=== PATIENT | male | born 1990 | race Caucasian/White ===

== ENCOUNTER 2017-03-01 21:05 | Emergency (ER) | payer MEDICAID ==
[~2017-03-01] VITALS: Ht 170.2 cm; Wt 57.2 kg
[2017-03-01] MEDS ORDERED: diphenhydrAMINE HCL 50 MG/ML VIAL ONE (21:26)
[2017-03-01] MEDS ORDERED: IV NS 0.9% 1,000 ML ONE (21:26)
[2017-03-01] MEDS ORDERED: HALOPERIDOL LACTATE INJ 5 MG/ML VIAL ONE (21:26)
[2017-03-01] MEDS ORDERED: IV SET PRIMARY PUMP SET 1 EA INFUS.SET MC ONE (21:26)
[2017-03-01] MEDS ORDERED: LORAZEPAM INJ 2 MG/ML VIAL ONE (21:27)
[2017-03-01 21:32] LABS: BASOPHILS # (AUTO) 0.1 /CMM (0.0-0.2); BASOPHILS % (AUTO) 1.1 % (0.0-2.0); EOSINOPHILS # (AUTO) 0.1 /CMM (0.0-0.7); EOSINOPHILS % (AUTO) 1.7 % (0.0-6.0); HEMATOCRIT 38 % (39-51); HEMOGLOBIN 13.1 g/dL (13.5-17.5); LYMPHOCYTES # (AUTO) 2.4 /CMM (0.8-4.8); LYMPHOCYTES % (AUTO) 27.8 % (20.0-44.0); MEAN CORPUSCULAR HEMOGLOBIN 31 PG (26.0-33.0); MEAN CORPUSCULAR HGB CONC 35 g/dl (31.0-36.0); MEAN CORPUSCULAR VOLUME 89 fL (80-96); MONOCYTES # (AUTO) 0.7 /CMM (0.1-1.30); MONOCYTES % (AUTO) 7.7 % (2.0-12.0); NEUTROPHILS # (AUTO) 5.4 /CMM (1.8-8.9); NEUTROPHILS % (AUTO) 61.7 % (43.0-81.0); PLATELET COUNT (AUTO) 354 /CMM (150-450); RDW COEFFICIENT OF VARIATION 13.6 (11.5-15.0); RED BLOOD CELL COUNT(AUTO) 4.26 MIL/uL (4.5-6.0); WHITE BLOOD COUNT (AUTO) 8.7 K/uL (4.3-11.0)
[2017-03-01] MEDS: LORAZEPAM INJ 2 MG/ML VIAL IVP ONE (21:35)
[2017-03-01] MEDS: diphenhydrAMINE HCL 50 MG/ML VIAL IV ONE (21:37)
[2017-03-01] MEDS: IV NS 0.9% 1,000 ML BAG IV ONE (21:37)
[2017-03-01 21:39] LABS: CALCIUM, SERUM 8.7 mg/dL (8.5-10.1); CARBON DIOXIDE 24 mmol/L (21-32); CHLORIDE 106 mmol/L (98-107); CREATININE 1.2 mg/dL (0.6-1.3); GLUCOSE 74 mg/dL (74-106); POTASSIUM 3.7 mmol/L (3.5-5.1); SODIUM SERUM 142 mmol/L (136-145); UREA NITROGEN, BLOOD 16 mg/dL (7-18)
[2017-03-01 21:49] LABS: ALANINE AMINOTRANSFERASE 39 U/L (12-78); ALBUMIN 3.7 g/dL (3.4-5.0); ALKALINE PHOSPHATASE 71 U/L (46-116); BILIRUBIN,DIRECT 0.1 mg/dL (0.0-0.2); BILIRUBIN,TOTAL 0.4 mg/dL (0.2-1.0)
[2017-03-01 21:50] LABS: ACETAMINOPHEN < 2 ug/ml (10-30); ALCOHOL, BLOOD < 3 mg/dL (0-0); SALICYLATE < 2.8 mg/dL (2.8-20.0); TOTAL PROTEIN, SERUM 6.8 g/dL (6.4-8.2)
[2017-03-01 21:52] LABS: ASPARTATE AMINOTRANSFERASE 37 U/L (15-37)
[2017-03-01] MEDS: HALOPERIDOL LACTATE INJ 5 MG/ML VIAL IVP ONE (22:00)
[2017-03-01 22:28] LABS: APPEARANCE,URINE CLEAR (CLEAR); BILIRUBIN,URINE NEGATIVE (NEGATIVE); BLOOD, URINE NEGATIVE Ery/uL (NEGATIVE); COLOR,URINE YELLOW (YELLOW); KETONES,URINE NEGATIVE (NEGATIVE); LEUKOCYTE ESTERASE ,URINE NEGATIVE (NEGATIVE); NITRITE, URINE NEGATIVE (NEGATIVE); PROTEIN,URINE TRACE mg/dl (NEGATIVE); UGLUCOSE NEGATIVE (NEGATIVE); UROBILINOGEN,URINE 0.2 EU/dL (0.2)
[2017-03-01 22:51] LABS: BACTERIA,URINE None seen /HPF (None Seen); MUCUS,URINE Few /LPF (None Seen); RBC,URINE NONE SEEN /HPF (0-2); SQUAMOUS EPITHELIAL CELL,UR Few /HPF (None Seen); URINE AMORPHOUS URATE Few /HPF (None Seen); WBC,URINE NONE SEEN /HPF (0-3)
[2017-03-02 05:17] VITALS: BP 119/75
== END 2017-03-02 05:18 | disposition home or self-care (01) ==
LOC: EDBD 21:08 → ER 21:08
DX: F15.10 Other stimulant abuse, uncomplicated (principal); F12.10 Cannabis abuse, uncomplicated
CPT/HCPCS: 36415; 80048-TC; 80076-TC; 80305; 81000-TC; 85025-TC; A4606; G0480; J1200; J1630; J2060; J7030; Z7610

== ENCOUNTER 2020-01-07 15:24 | Emergency (ER) | payer MEDICAID ==
[~2020-01-07] VITALS: Ht 170.2 cm; Wt 68.0 kg
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
--- NOTE | 2020-01-07 17:12 | NUR ---
PT NOTED @ 89% ON RA AND DROWSY. PLACED ON O2 VIA NC @ 2LPM. MADE AWARE. ORDERS RECEIVED
[2020-01-07] MEDS ORDERED: NALOXONE PREFILLED SYRINGE 2 MG/2 ML SYRINGE ONE (17:15)
--- NOTE | 2020-01-07 17:19 | NUR ---
PT AWAKEN UP WHEN PRIOR TO GIVING NARCAN. PT IS FULLY AWAKE. O2 SAT 97% ON RA. MD MADE AWARE. CLEARED FOR DISCHARGE.
--- NOTE | 2020-01-07 17:21 | NUR ---
Patient discharged to home in stable condition. Written and verbal after care instructions given. Patient verbalizes understanding of instruction.IV removed. Catheter intact and site benign. Pressure and 4x4 applied to site. No bleeding noted. Pt ambulatory with a steady gait
[2020-01-07 17:27] VITALS: BP 121/71
[2020-01-07] MEDS ORDERED: NALOXONE HCL 0.4 MG/ML AMPUL IV ONE (17:30)
== END 2020-01-07 17:27 | disposition home or self-care (01) ==
LOC: ER 15:30
DX: T40.0X1A Poisoning by opium, accidental (unintentional), initial encounter (principal); R41.82 Altered mental status, unspecified; Z59.0 Homelessness; Y92.89 Other specified places as the place of occurrence of the external cause
CPT/HCPCS: 99283; J2310

== ENCOUNTER 2022-08-29 03:54 | Inpatient (IN) | payer MEDICAID ==
[~2022-08-29] VITALS: Ht 172.7 cm; Wt 70.8 kg
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
--- NOTE | 2022-08-29 05:01 | NUR ---
COVID SWAB COLLECTED
--- NOTE | 2022-08-29 05:01 | NUR ---
URINE SAMPLE COLLECTED
--- NOTE | 2022-08-29 05:16 | NUR ---
PT REFUSED BLOOD DRAW PER OVERHEAD CLEANER
[2022-08-29] MEDS ORDERED: diphenhydrAMINE HCL 50 MG/ML VIAL ONE (05:48)
[2022-08-29] MEDS ORDERED: HALOPERIDOL LACTATE INJ 5 MG/ML VIAL ONE (05:48)
[2022-08-29] MEDS ORDERED: LORAZEPAM INJ 2 MG/ML VIAL ONE (05:49)
[2022-08-29 05:59] LABS: BILIRUBIN,URINE 1+ (NEGATIVE); COLOR,URINE DARK YELLOW (YELLOW); LEUKOCYTE ESTERASE ,URINE NEGATIVE (NEGATIVE); NITRITE, URINE NEGATIVE (NEGATIVE); PROTEIN,URINE 1+ mg/dl (NEGATIVE); UGLUCOSE NEGATIVE (NEGATIVE); UROBILINOGEN,URINE 0.2 EU/dL (0.2)
[2022-08-29] MEDS ORDERED: LORAZEPAM INJ 2 MG/ML VIAL IM ONE (06:00)
[2022-08-29] MEDS ORDERED: diphenhydrAMINE HCL 50 MG/ML VIAL IM ONE (06:00)
[2022-08-29] MEDS ORDERED: HALOPERIDOL LACTATE INJ 5 MG/ML VIAL IM ONE (06:00)
[2022-08-29 06:14] LABS: BACTERIA,URINE Rare /HPF (None Seen); SQUAMOUS EPITHELIAL CELL,UR Few /HPF (None Seen); WBC,URINE 0-2 /HPF (0-3)
[2022-08-29 07:44] LABS: BASOPHILS % (AUTO) 0.2 % (0.0-2.0); EOSINOPHILS % (AUTO) 0.3 % (0.0-6.0); HEMATOCRIT 42 % (39-51); HEMOGLOBIN 14.1 g/dL (13.5-17.5); LYMPHOCYTES # (AUTO) 1.1 K/uL (0.8-4.8); LYMPHOCYTES % (AUTO) 9.4 % (20.0-44.0); MEAN CORPUSCULAR HGB CONC 34 g/dl (31.0-36.0); MEAN CORPUSCULAR VOLUME 88 fL (80-96); MONOCYTES % (AUTO) 8.4 % (2.0-12.0); NEUTROPHILS # (AUTO) 9.8 K/uL (1.8-8.9); NEUTROPHILS % (AUTO) 81.7 % (43.0-81.0); PLATELET COUNT (AUTO) 229 K/uL (150-450); WHITE BLOOD COUNT (AUTO) 11.9 K/uL (4.3-11.0)
[2022-08-29 07:51] LABS: CALCIUM, SERUM 8.1 mg/dL (8.5-10.1); CARBON DIOXIDE 23 mmol/L (21-32); CHLORIDE 101 mmol/L (98-107); CREATININE 0.8 mg/dL (0.6-1.3); POTASSIUM 3.4 mmol/L (3.5-5.1); SODIUM SERUM 139 mmol/L (136-145); UREA NITROGEN, BLOOD 19 mg/dL (7-18)
[2022-08-29 07:55] LABS: GLUCOSE 38 mg/dL (74-106)
[2022-08-29] MEDS ORDERED: DEXTROSE 50%-WATER 50 ML DISP.SYRIN ONE ×2 (07:56→14:03)
[2022-08-29 07:57] LABS: ALANINE AMINOTRANSFERASE 51 U/L (12-78); ALBUMIN 3.7 g/dL (3.4-5.0); ALCOHOL, BLOOD < 3 mg/dL (0-0); ALKALINE PHOSPHATASE 55 U/L (46-116); ASPARTATE AMINOTRANSFERASE 75 U/L (15-37); BILIRUBIN,DIRECT 0.3 mg/dL (0.0-0.2); TOTAL PROTEIN, SERUM 6.8 g/dL (6.4-8.2)
[2022-08-29 08:00] LABS: ACETAMINOPHEN < 10 ug/ml (10-30)
[2022-08-29] MEDS ORDERED: DEXTROSE 10% IN WATER 250 ML BAG IV ONE (08:30)
--- NOTE | 2022-08-29 15:01 | NUR ---
[facility] CALLED SALESPERSON SHEET MUSIC PAGED.
[2022-08-29] MEDS ORDERED: ONDANSETRON HCL/PF 4 MG/2 ML VIAL IVP PRN (18:00)
[2022-08-29] MEDS ORDERED: ZOLPIDEM TARTRATE 5 MG TABLET PO PRN (18:00)
[2022-08-29] MEDS ORDERED: MAG HYDROX/AL HYDROX/SIMETH 30 ML UDC PO PRN (18:00)
[2022-08-29] MEDS ORDERED: Z GUARD REMEDY 4 OZ OINT TP PRN (18:00)
[2022-08-29] MEDS ORDERED: MAGNESIUM HYDROXIDE 30 ML UDC PO PRN (18:00)
[2022-08-29] MEDS: Sodium Chloride 77 MEQ in IV 10% DEXTROSE 1,000 ML IV SCH (21:09)
[2022-08-29] MEDS: BLOOD SUGAR DIAGNOSTIC 1 EACH STRIP IN SCH (21:37)
--- NOTE | 2022-08-30 | NUR ---
PT SLEEPING IN BED. VSS. SAFETY MEASURES IN PLACE.
--- NOTE | 2022-08-30 01:31 | NUR ---
BS ACCTITIECK 131 Addendum: 08/30/22 at 0256 by RAFIA BS ACCUCHECK 130
[2022-08-30] MEDS: BLOOD SUGAR DIAGNOSTIC 1 EACH STRIP IN SCH ×6 (01:32→20:39)
--- NOTE | 2022-08-30 04:01 | NUR ---
ADLS DONE. PT AMBULATED TO RESTROOM WITH STEADY GAIT. VSS
[2022-08-30] MEDS: Sodium Chloride 77 MEQ in IV 10% DEXTROSE 1,000 ML IV SCH ×3 (04:14→20:00)
--- NOTE | 2022-08-30 06:00 | NUR ---
BOX COVERER HAND AT PT'S BEDSIDE
[2022-08-30 06:28] LABS: BASOPHILS % (AUTO) 0.1 % (0.0-2.0); EOSINOPHILS % (AUTO) 1.1 % (0.0-6.0); HEMATOCRIT 44 % (39-51); HEMOGLOBIN 14.8 g/dL (13.5-17.5); MEAN CORPUSCULAR HGB CONC 34 g/dl (31.0-36.0); MEAN CORPUSCULAR VOLUME 88 fL (80-96); MONOCYTES # (AUTO) 0.8 K/uL (0.1-1.30); MONOCYTES % (AUTO) 8.4 % (2.0-12.0); NEUTROPHILS # (AUTO) 7.7 K/uL (1.8-8.9); NEUTROPHILS % (AUTO) 80.4 % (43.0-81.0); PLATELET COUNT (AUTO) 217 K/uL (150-450); RED BLOOD CELL COUNT(AUTO) 4.96 MIL/uL (4.5-6.0); WHITE BLOOD COUNT (AUTO) 9.6 K/uL (4.3-11.0)
[2022-08-30 07:29] LABS: ALBUMIN 3.2 g/dL (3.4-5.0); BILIRUBIN,DIRECT 0.2 mg/dL (0.0-0.2); BILIRUBIN,TOTAL 0.8 mg/dL (0.2-1.0); CALCIUM, SERUM 7.8 mg/dL (8.5-10.1); CREATININE 0.7 mg/dL (0.6-1.3); MAGNESIUM 1.9 mg/dL (1.8-2.4); PHOSPHORUS 2.6 mg/dL (2.5-4.9); POTASSIUM 3.3 mmol/L (3.5-5.1); TOTAL PROTEIN, SERUM 6.2 g/dL (6.4-8.2)
[2022-08-30] MEDS ORDERED: PANTOPRAZOLE 40 MG TABLET.DR PO ONE (07:52)
[2022-08-30] MEDS: PANTOPRAZOLE 40 MG TABLET.DR PO SCH (07:52)
--- NOTE | 2022-08-30 09:04 | NUR ---
BS 115MG/DL; PT NOT IN ACUTE DISTRESS.
[2022-08-30] MEDS ORDERED: POTASSIUM CHLORIDE 20 MEQ TAB.PRT.SR PO SCH (11:00)
--- NOTE | 2022-08-30 11:23 | NUR ---
DR SANTIAGO AT BEDSIDE W/ PT
[2022-08-30] MEDS ORDERED: POTASSIUM CHLORIDE 20 MEQ TAB.PRT.SR PO ONE (12:26)
--- NOTE | 2022-08-30 12:35 | NUR ---
K-DUR PO GIVEN INDICATED, BEULAH WELL
[2022-08-30] MEDS ORDERED: CLINDAMYCIN PHOSPHATE IV 600 MG/4 ML VIAL IV SCH (13:00)
--- NOTE | 2022-08-30 13:00 | NUR ---
LUNCH TRAY PROVIDED TO PTBEULAH
--- NOTE | 2022-08-30 13:39 | NUR ---
BS 111MG/DL
--- NOTE | 2022-08-30 14:38 | NUR ---
NO 5150 HOLD PAPERS CAN BE FOUND FOR THIS PATIENT, BULL MIRANDA CALLED FOR EVAL TO SEE IF PATIENT NEEDS PSYCH EVAL.
--- NOTE | 2022-08-30 15:27 | NUR ---
SPOKE TO GINO BOBBIN COLLECTOR AND SHE WILL EVALUATE PT
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
[2022-08-30] MEDS: CLINDAMYCIN 600 MG in IV D5W 50 ML IV SCH ×2 (19:59→23:55)
--- NOTE | 2022-08-30 20:38 | NUR ---
BS 106
--- NOTE | 2022-08-30 20:57 | NUR ---
REPORT GIVEN TO TRU Bridges FOR LIBERTAD
--- NOTE | 2022-08-30 21:15 | NUR ---
TELE REAL ESTATE INVESTMENT ANALYST INITIAL NOTED Admit pt from ER via gurney accompanied by sanitation technician and nurse. Pt is alert oriented X4, ambulatory , no signs of any distress or any pain noted at this time. No signs of suicidal ideation noted. He's cooperative and calmed . able to give information. Pt stated "he wants to go to [facility] if he will discharge. Noticed multiple blister , abrasion and scratches on his skin. Oriented him to his room and how to use the call light system . Snacks also served as ordered. Tele monitor applied to his chest wall and explained to him what the purpose of it and pt understood well. kept him warm and comfortable at all times. will continue monitoring.
--- NOTE | 2022-08-30 21:26 | NUR ---
PT TRANSFERRED TO 321-1 VIA ACLS PROTOCOL. VSS. ALL BELONGINGS WITH PT.
[2022-08-30 21:30] VITALS: BP 128/84
[2022-08-30] MEDS ORDERED: [UNRECOGNIZED DRUG - OTHER] ONE (23:19)
[2022-08-30 23:40] VITALS: BP 128/84
[2022-08-31 00:22] VITALS: BP 111/69
[2022-08-31] MEDS: Sodium Chloride 77 MEQ in IV 10% DEXTROSE 1,000 ML IV SCH ×4 (01:09→19:46)
[2022-08-31] MEDS: BLOOD SUGAR DIAGNOSTIC 1 EACH STRIP IN SCH ×6 (01:23→21:34)
--- NOTE | 2022-08-31 01:23 | NUR ---
info analyst notes Pt asleep but arousable, Blood sugar checked done 145 , no coverages as ordered. no signs of hypo or hyper glycemia noted. will continue monitoring.
[2022-08-31 04:37] VITALS: BP 119/70
[2022-08-31] MEDS: CLINDAMYCIN 600 MG in IV D5W 50 ML IV SCH (05:23)
[2022-08-31 06:04] LABS: BASOPHILS % (AUTO) 0.2 % (0.0-2.0); EOSINOPHILS % (AUTO) 2.1 % (0.0-6.0); HEMATOCRIT 43 % (39-51); HEMOGLOBIN 14.5 g/dL (13.5-17.5); LYMPHOCYTES # (AUTO) 1.1 K/uL (0.8-4.8); LYMPHOCYTES % (AUTO) 12.9 % (20.0-44.0); MEAN CORPUSCULAR HGB CONC 34 g/dl (31.0-36.0); MEAN CORPUSCULAR VOLUME 89 fL (80-96); MONOCYTES # (AUTO) 0.8 K/uL (0.1-1.30); MONOCYTES % (AUTO) 9.1 % (2.0-12.0); NEUTROPHILS # (AUTO) 6.3 K/uL (1.8-8.9); NEUTROPHILS % (AUTO) 75.7 % (43.0-81.0); PLATELET COUNT (AUTO) 224 K/uL (150-450); RED BLOOD CELL COUNT(AUTO) 4.83 MIL/uL (4.5-6.0); WHITE BLOOD COUNT (AUTO) 8.3 K/uL (4.3-11.0)
--- NOTE | 2022-08-31 06:20 | NUR ---
alumni coordinator notes Blood sugar 131 no coverages as ordered.
[2022-08-31 06:49] LABS: CREATININE 0.7 mg/dL (0.6-1.3); MAGNESIUM 1.8 mg/dL (1.8-2.4); PHOSPHORUS 2.7 mg/dL (2.5-4.9); POTASSIUM 3.7 mmol/L (3.5-5.1)
--- NOTE | 2022-08-31 06:49 | NUR ---
TELE ACCOUNTS EXECUTIVE NOTES Patient remain sleeping at this time with IVF still infusing , no redness noted. no signs of any acute distress or any discomfort at this time. Tele SR heart rate 88 per monitor. Kept him warm and comfortable at all times. will endorse to am nurse for continuity of care.
--- NOTE | 2022-08-31 07:15 | NUR ---
ms rn received on bed, awake,alert,oriented x4,not in any for of distress, respirations even and unlabored,no sob noted, noted to have some pustular rashes on his edwina parts, denies pain at this time,blood sugar monitored ,all needs attended.
[2022-08-31] MEDS: PANTOPRAZOLE 40 MG TABLET.DR PO SCH (08:10)
--- NOTE | 2022-08-31 09:00 | NUR ---
ms loera breakfast served,due meds given,tolerated well.
--- NOTE | 2022-08-31 09:09 | NUR ---
WOUND CARE CONSULT: PT SEEN FOR RT ARM LESIONS (VESICLES/PUSTULES) WITH ERYTHEMA WELL REDNESS AND SLIGHT INDURATION AT LOWER ABDOMEN, PRESENT ON ADMISSION. DEFER TO PMD FOR SKIN LESIONS AND ABDOMINAL REDNESS. PT IS INDEPENDENT WITH BED MOBILITY AND IS CONTINENT. WILL SEE PRN.
--- NOTE | 2022-08-31 11:25 | NUR ---
DISCHARGE PLANNING: LISSETT conducted biopsychosocial assessment yesterday. SW met with pt. at bedside to follow up on discharge planning. The pt. is alert & oriented x 4 and makes good eye contact. Pt.'s mood is more stable from yesterday. Pt. denies current SI/HI and denies hallucinations. The pt. has good insight and stated he has no support system. Per pt. he is ambulatory and independent with all his ADL's. Per pt. he does not receive financial assistance, Per pt. he would like to be referred to [facility] for drug & alcohol rehab. pt. states he uses Meth, [place] and alcohol daily. LISSETT faxed referral to [facility] fax: [phone]. LISSETT provided pt. with homeless resources: long term, food, showers and pt. accepted them. Pt. signed homeless waiver and it was placed in the pt.'s chart. LISSETT discussed DC plan with pt.'s nurse and requested pt. be given bus TAP card upon DC. Resources provided include: Year-round shelters: [facility] [address] [place] [address] ; [facility] [place] [address] [place] [address]; [place] [facility] P[address]av[address] [place] e. [facility] [address] Hygiene: [place] [facility]: [address] [place] ; [place] [facility] [address] [facility] ; [facility] 7666 [facility] . Food Resources: [place] [facility] at [facility]- [address] [place]; Meet Each Need with Dignity ([facility]) [address] [place]; [facility] Food Pantry 7112 [facility]; [facility] [address] [place]. Mental Health resources provided: [facility] [address] [place] [address] ; [facility] [address]686 [facility] [address], [place] [address] ; [facility] [address] [place] [address] ; [facility] [address] [place], [place] [address] Healthcare Clinics: [facility] 6551 [facility], [address] [place]. [place] ; [facility] [address] [facility] [address] [place] [address]; [facility] [address]171 [place] [address] [phone] Counseling--Outpatient [facility] [address] [facility], [place] [address] (Specializes in in-depth psychotherapy for emotional distress: anxiety, depression, interpersonal conflicts, life transitions, childhood abuse) [facility] [address] [place] [address] (Assist with solving problem marital difficulties, separation & divorce, aging parents, & grief, chronic & terminal illness) [facility] [address] [place] [address] (Deal with loss & grief, anxiety, marital difficulties) Homebound/Mental Health Services [address] [facility], [address] [place] [address] (Provide in-home mental services to people who are incapable of leaving their homes) Organization for Needs of the Elderly Senior Service/Resource Center [address] [place], [place] [phone] [facility] 6514 [facility] [address]. [place], [place] [phone] PSYCHIATRIC OUTPATIENT SERVICES [facility] Partial Hospitalization and Intensive Outpatient Program (Managed Care and [place] Only)25376 [facility] [phone] [facility] Partial Hospitalization and Outpatient [address] [place], [place] [phone] GURU SALVADOR [facility] [id number] [address] [facility]. [address] [place], [place] [phone] [facility] Jeremiah Partial Hospitalization and Outpatient [id number] Loni Fraire, [phone] Substance Abuse resources provided included: [facility] Substance Abuse Self-Helpline ([facility]) ; CRI -HELP [address] [facility]. [place] [address] ; [facility] 44162 [facility] [address] ; [facility] Rehabilitation Program [address]811 [facility] [id number] ; [facility] 400 [facility] [phone] ; [facility] 4940 [facility] [phone] ; [facility] 909 [facility] [phone] ; [facility] Substance Abuse Helpline([facility] ; [facility] ; [facility] [place]; [facility] [place]; [facility] [place]; I-ADARP Inter Agency Drug Abuse Recovery [place]; [facility]; [facility] [place]; [facility] [place]; [facility] [place]; Alcoholics Anonymous -SFV; Pr-Cgxx-Jhrtakq ; Marijuana Anonymous -SFV; Narcotics Anonymous www.na.org;
--- NOTE | 2022-08-31 14:00 | NUR ---
MS RN WAS SEEN BY INFECTIOUS MD. W/ ORDERS MADE AND CARRIED OUT.
[2022-08-31] MEDS: VALACYCLOVIR HCL 500 MG TABLET PO SCH ×2 (15:20→21:28)
--- NOTE | 2022-08-31 16:49 | NUR ---
[facility]: LISSETT received call from Lacie tel: [phone] and LISSETT addressed her questions. LISSETT also facilitated phone call with pt. and Lacie interviewed the pt. for possible residential treatment. LISSETT will be available as needed.
[2022-08-31] MEDS: CLINDAMYCIN HCL 150 MG CAPSULE PO SCH (17:04)
--- NOTE | 2022-08-31 17:50 | NUR ---
MS RN ON BED,NO DISTRESS NOTED,ALL NEED ATTENDED.
[2022-08-31 19:43] VITALS: BP 103/57
[2022-08-31 20:00] VITALS: BP 103/57
--- NOTE | 2022-08-31 20:10 | NUR ---
TELE SUMO WRESTLER INITIAL NOTES, Received pt in bed awake and watching tv at this time, denies any pain or any discomfort. IVF still infusing on his left Forearm, no redness noted. Pt asking for some snacks later. Pt also on Tele SR heart rate 81 .Kept him warm and comfortable at all times. Will continue monitoring place call light at reach.
--- NOTE | 2022-08-31 21:34 | NUR ---
INTEGRITY ANALYST NOTES BLOOD SUGAR CHECKED DONE 145. NO COVERAGE ORDERED. NO SIGNS OF HYPO/HYPER GLYCEMIA NOTED. ROUTINE MEDS GIVEN . IVF STILL INFUSING. WILL CONTINUE MONITORING.
--- NOTE | 2022-08-31 21:45 | NUR ---
ELECTRIC TOOL REPAIRER NOTES SPOKE TO PHARMACY SUMMER CAMP COUNSELOR TO VERIFY IF I CAN GIVE THE MEDS AT 2100, BECAUSE ORDERED IS Q 12HRS EVEN DAY SHIFT NURSE JUST GAVE THE FIRST DOSE AT 15:20 . SHE (JENNIFER) TOLD ME TO HOLD IT FOR NOW THEN JUST GIVE IT BY 12 MN INSTEAD SO ITS START THE NEXT DOSE BY 9AM THAT IS Q 12 HRS ORDERED. CHARGE NURSE MAKAYLA IS ALSO AWARE.
[2022-09-01] VITALS: BP 133/76
[2022-09-01] MEDS: VALACYCLOVIR HCL 500 MG TABLET PO SCH ×3 (00:01→21:34)
[2022-09-01] MEDS: CLINDAMYCIN HCL 150 MG CAPSULE PO SCH ×4 (00:01→17:54)
--- NOTE | 2022-09-01 00:11 | NUR ---
menu planner notes pt sleeping but arouse easily, routines meds given as ordered. Pt denies any pain or any discomfort. IVF still infusing, some juices and crackers given per pt requested. will continue monitoring.
[2022-09-01] MEDS: BLOOD SUGAR DIAGNOSTIC 1 EACH STRIP IN SCH ×6 (01:19→21:34)
--- NOTE | 2022-09-01 01:19 | NUR ---
COMMERCIAL RELIEF DRIVER NOTES BLOOD SUGAR CHECKED 145, NO COVERAGE ORDERED. NO SIGNS OF HYPO/HYPERGLYCEMIA NOTED.
[2022-09-01] MEDS: Sodium Chloride 77 MEQ in IV 10% DEXTROSE 1,000 ML IV SCH ×3 (03:43→17:54)
[2022-09-01 04:00] VITALS: BP 112/64
--- NOTE | 2022-09-01 05:29 | NUR ---
PASSENGER CAR CLEANING SUPERVISOR NOTES BLOOD SUGAR CHECKED 124 NO COVERAGE ORDERED. WILL CONTINUE MONITORING.
[2022-09-01 07:00] VITALS: BP 117/73
--- NOTE | 2022-09-01 07:25 | NUR ---
tele llvn closing notes Pt back to sleep after blood sugar checked . denies any pain or any discomfort. IVF still infuisng on his left forearm. no signs of redness noted. all due meds given and all needs met. Patient only request for today have a shower .Endorse to am nurse to let MD for the pt request. Tele SR per monitor. place call light at reach.
[2022-09-01 07:28] LABS: BASOPHILS % (AUTO) 0.2 % (0.0-2.0); EOSINOPHILS % (AUTO) 3.4 % (0.0-6.0); HEMATOCRIT 43 % (39-51); HEMOGLOBIN 14.6 g/dL (13.5-17.5); LYMPHOCYTES # (AUTO) 1.5 K/uL (0.8-4.8); LYMPHOCYTES % (AUTO) 19.8 % (20.0-44.0); MEAN CORPUSCULAR HGB CONC 34 g/dl (31.0-36.0); MEAN CORPUSCULAR VOLUME 89 fL (80-96); MONOCYTES # (AUTO) 0.8 K/uL (0.1-1.30); MONOCYTES % (AUTO) 10.9 % (2.0-12.0); NEUTROPHILS # (AUTO) 4.9 K/uL (1.8-8.9); NEUTROPHILS % (AUTO) 65.7 % (43.0-81.0); PLATELET COUNT (AUTO) 250 K/uL (150-450); RED BLOOD CELL COUNT(AUTO) 4.87 MIL/uL (4.5-6.0); WHITE BLOOD COUNT (AUTO) 7.5 K/uL (4.3-11.0)
[2022-09-01 07:33] LABS: CALCIUM, SERUM 8.2 mg/dL (8.5-10.1); CREATININE 0.7 mg/dL (0.6-1.3); MAGNESIUM 1.8 mg/dL (1.8-2.4); PHOSPHORUS 3.8 mg/dL (2.5-4.9); POTASSIUM 3.7 mmol/L (3.5-5.1)
--- NOTE | 2022-09-01 07:51 | NUR ---
SHAMPOO TECHNICIAN OPENING NOTE Patient in bed, asleep. A/O x 4. On room air, breathing evenly and unlabored. No SOB or s/s of distress noted. IV access on LFA #20 infusing D10 at 150ml/hr. On tele monitoring showing SR, HR on the 80's. Safety precautions in place: bed in low, locked position; siderails up x 2; call light within reach. Will continue to monitor.
[2022-09-01] MEDS: PANTOPRAZOLE 40 MG TABLET.DR PO SCH (08:09)
[2022-09-01] MEDS: VENLAFAXINE XR 37.5 MG CAP.SR.24H PO SCH (11:26)
[2022-09-01 12:00] VITALS: BP 125/94
[2022-09-01 16:00] VITALS: BP 112/59
--- NOTE | 2022-09-01 19:46 | NUR ---
ASSISTANT AT SURGERY CLOSING NOTE Patient in bed, resting. A/O x 4, able to make needs known. On room air, breathing evenly and unlabored. No SOB or s/s of distress noted. IV access on LFA #20 infusing NaCl in D10 at 150ml/hr. On tele monitoring showing SR, HR on the 80's. All needs attended to. Due meds given. Safety precautions in place: bed in low, locked position; siderails up x 2; call light within reach. Will endorse to shift mgr nurse for LIBERTAD.
[2022-09-01 20:00] VITALS: BP 106/70
--- NOTE | 2022-09-01 20:10 | NUR ---
RAW STOCK MACHINE FEEDER OPENING NOTE PATIENT AWAKE IN BED, ALERT/ORIENTED X 4, PT ABLE TO MAKE NEEDS KNOWN. PT STABLE ON RA, NO S/S OF DISTRESS OR SOB NOTED, BREATHING EVEN AND UNLABORED. PT ON EXTERNAL DIRECTOR LAW ENFORCEMENT READING SINUS RHYTHM, HR: 78. IV ACCESS ON LFA #20G INTACT AND INFUSING NACL IN D10 @ 150 ML/HR. PATIENT GIVEN JUICE AND SNACK PER REQUEST. SAFETY MEASURES IN PLACE: CALL LIGHT WITHIN REACH, SIDE RAILS UP X 2, BED LOCKED IN LOWEST POSITION. WILL CONTINUE TO MONITOR PATIENT
[2022-09-02] VITALS: BP 134/73
[2022-09-02] MEDS: Sodium Chloride 77 MEQ in IV 10% DEXTROSE 1,000 ML IV SCH ×4 (01:18→20:20)
[2022-09-02] MEDS: CLINDAMYCIN HCL 150 MG CAPSULE PO SCH ×5 (01:19→23:32)
[2022-09-02] MEDS: BLOOD SUGAR DIAGNOSTIC 1 EACH STRIP IN SCH ×6 (01:19→20:21)
[2022-09-02 04:00] VITALS: BP 128/77
[2022-09-02 06:35] LABS: BASOPHILS % (AUTO) 0.4 % (0.0-2.0); EOSINOPHILS % (AUTO) 4.7 % (0.0-6.0); HEMATOCRIT 44 % (39-51); HEMOGLOBIN 14.9 g/dL (13.5-17.5); LYMPHOCYTES # (AUTO) 1.5 K/uL (0.8-4.8); MEAN CORPUSCULAR HGB CONC 34 g/dl (31.0-36.0); MEAN CORPUSCULAR VOLUME 89 fL (80-96); MONOCYTES # (AUTO) 0.6 K/uL (0.1-1.30); MONOCYTES % (AUTO) 9.1 % (2.0-12.0); NEUTROPHILS # (AUTO) 4.3 K/uL (1.8-8.9); NEUTROPHILS % (AUTO) 63.8 % (43.0-81.0); PLATELET COUNT (AUTO) 281 K/uL (150-450); RED BLOOD CELL COUNT(AUTO) 4.98 MIL/uL (4.5-6.0); WHITE BLOOD COUNT (AUTO) 6.8 K/uL (4.3-11.0)
[2022-09-02 06:51] LABS: CALCIUM, SERUM 8.3 mg/dL (8.5-10.1); CREATININE 0.7 mg/dL (0.6-1.3); MAGNESIUM 1.9 mg/dL (1.8-2.4); PHOSPHORUS 3.6 mg/dL (2.5-4.9); POTASSIUM 3.9 mmol/L (3.5-5.1)
--- NOTE | 2022-09-02 06:57 | NUR ---
POURER CRANE LADLE CLOSING NOTE PATIENT SLEEPING IN BED, ALERT/ORIENTED X 4, PT ABLE TO MAKE NEEDS KNOWN. PT STABLE ON RA, NO S/S OF DISTRESS OR SOB NOTED, BREATHING EVEN AND UNLABORED. PT ON EXTERNAL KNIFE SETTER ASSEMBLER READING SINUS RHYTHM, HR: 68. IV ACCESS ON LFA #20G INTACT AND INFUSING NACL IN D10 @ 150 ML/HR. MEDICATIONS GIVEN ORDERED, PT NEEDS MET THROUGHOUT SHIFT, NO SIGNIFICANT CHANGES. SAFETY MEASURES IN PLACE: CALL LIGHT WITHIN REACH, SIDE RAILS UP X 2, BED LOCKED IN LOWEST POSITION. WILL ENDORSE TO DAYSHIFT RN FOR CONTINUITY OF CARE
[2022-09-02 07:00] VITALS: BP 135/79
--- NOTE | 2022-09-02 07:08 | NUR ---
PUBLIC DEFENDER OPENING NOTES RECEIVED PATIENT AWAKE IN BED, ON ROOM AIR, NO S/S OF RESPIRATORY DISTRESS.PATIENT IS A/Ox4, ABLE TO MAKE NEEDS KNOWN. IV ACCESS: LFA #20G RUNNING NACL D10 @150 ML/HR INTACT AND PATENT. PATIENT IS CONTINENT, USES URINAL AND HAS BATHROOM PRIVILEGE. SKIN ISSUES: MULTIPLE GENERALIZED BLISTERED, SCRATCHES, ABRASIONS, AND GROIN ABSCESS. SAFETY MEASURES: BED LOCKED AND IN LOWEST POSITION, SIDE RAILS UPx2, CALL LIGHT WITHIN REACH, HOB ELEVATED. WILL CONTINUE TO MONITOR.
[2022-09-02] MEDS: VALACYCLOVIR HCL 500 MG TABLET PO SCH ×2 (08:29→20:21)
[2022-09-02] MEDS: PANTOPRAZOLE 40 MG TABLET.DR PO SCH (08:29)
[2022-09-02] MEDS: VENLAFAXINE XR 37.5 MG CAP.SR.24H PO SCH (11:27)
[2022-09-02 12:00] VITALS: BP 136/86
--- NOTE | 2022-09-02 14:26 | NUR ---
RN NOTES PATIENT SLEEPING IN BED, BLOOD SUGAR HAVE BEEN WITHIN NORMAL LIMITS. WILL CONTINUE TO MONITOR.
[2022-09-02 16:00] VITALS: BP 138/67
--- NOTE | 2022-09-02 18:44 | NUR ---
HSE COORDINATOR CLOSING NOTES PATIENT AWAKE IN BED, STABLE ON ROOM AIR, NO S/S OF RESPIRATORY DISTRESS.PATIENT IS A/Ox4, ABLE TO MAKE NEEDS KNOWN. IV ACCESS: LFA #20G RUNNING NACL D10 @150 ML/HR INTACT AND PATENT. ON TELE MONITORING SHOWING SINUS RHYTHM 69. PATIENT IS CONTINENT, USES URINAL AND HAS BATHROOM PRIVILEGE. SKIN ISSUES: MULTIPLE GENERALIZED BLISTERED, SCRATCHES, ABRASIONS, AND GROIN ABSCESS. SAFETY MEASURES MAINTAINED: BED LOCKED AND IN LOWEST POSITION, SIDE RAILS UPx2, CALL LIGHT WITHIN REACH, HOB ELEVATED. WILL ENDORSE TO NEXT SHIFT ANY LIBERTAD.
--- NOTE | 2022-09-02 19:59 | NUR ---
WAFER SLICER OPENING NOTES PATIENT AWAKE IN BED, STABLE ON ROOM AIR, NO S/S OF RESPIRATORY DISTRESS. A/Ox4, ABLE TO MAKE NEEDS KNOWN. IV ACCESS: LFA #20, RUNNING NACL D10 @150 ML/HR INTACT AND PATENT. ON TELE MONITORING SHOWING SINUS RHYTHM 82. SAFETY MEASURES MAINTAINED: BED LOCKED AND IN LOWEST POSITION, SIDE RAILS UPx2, CALL LIGHT WITHIN REACH, HOB ELEVATED. WILL CONTINUE TO MONITOR.
[2022-09-02 20:00] VITALS: BP 119/57
[2022-09-02] MEDS: ACETAMINOPHEN 325 MG TABLET PO PRN (20:37)
--- NOTE | 2022-09-02 20:38 | NUR ---
RN NOTES PATIENT COMPLAINS OF PAIN AT RIGHT HAND, SWOLLEN. RATED PAIN 3/10. REQUESTED PAIN MEDICATION. GIVEN TYLENOL 2 TABS PRN ORDERED. KEPT COMFORTABLE.
[2022-09-03] MEDS: BLOOD SUGAR DIAGNOSTIC 1 EACH STRIP IN SCH ×6 (00:09→21:00)
[2022-09-03] MEDS: Sodium Chloride 77 MEQ in IV 10% DEXTROSE 1,000 ML IV SCH ×4 (03:07→23:26)
[2022-09-03] MEDS: CLINDAMYCIN HCL 150 MG CAPSULE PO SCH ×4 (05:02→23:32)
[2022-09-03 06:04] LABS: BASOPHILS % (AUTO) 0.5 % (0.0-2.0); EOSINOPHILS % (AUTO) 4.9 % (0.0-6.0); HEMATOCRIT 44 % (39-51); HEMOGLOBIN 15.1 g/dL (13.5-17.5); LYMPHOCYTES # (AUTO) 1.7 K/uL (0.8-4.8); LYMPHOCYTES % (AUTO) 26.9 % (20.0-44.0); MEAN CORPUSCULAR HGB CONC 34 g/dl (31.0-36.0); MEAN CORPUSCULAR VOLUME 88 fL (80-96); MONOCYTES # (AUTO) 0.7 K/uL (0.1-1.30); NEUTROPHILS # (AUTO) 3.6 K/uL (1.8-8.9); NEUTROPHILS % (AUTO) 56.7 % (43.0-81.0); PLATELET COUNT (AUTO) 322 K/uL (150-450); RED BLOOD CELL COUNT(AUTO) 4.98 MIL/uL (4.5-6.0); WHITE BLOOD COUNT (AUTO) 6.4 K/uL (4.3-11.0)
[2022-09-03 06:20] LABS: CALCIUM, SERUM 8.6 mg/dL (8.5-10.1); CREATININE 0.7 mg/dL (0.6-1.3); MAGNESIUM 1.9 mg/dL (1.8-2.4); PHOSPHORUS 4.2 mg/dL (2.5-4.9); POTASSIUM 4.1 mmol/L (3.5-5.1)
--- NOTE | 2022-09-03 06:45 | NUR ---
ROLLWAY WORKER CLOSING NOTES PATIENT AWAKE IN BED, STABLE ON ROOM AIR, NO S/S OF RESPIRATORY DISTRESS. A/Ox4, ABLE TO MAKE NEEDS KNOWN. IV ACCESS: LFA #20, RUNNING NACL D10 @150 ML/HR INTACT AND PATENT. ON TELE MONITORING SHOWING SINUS RHYTHM 70. SAFETY MEASURES MAINTAINED: BED LOCKED AND IN LOWEST POSITION, SIDE RAILS UPx2, CALL LIGHT WITHIN REACH, HOB ELEVATED. WILL ENDORSE TO NEXT SHIFT RN FOR LIBERTAD.
--- NOTE | 2022-09-03 07:16 | NUR ---
TRUCK HOP OPENING NOTES PATIENT ASLEEP IN BED BUT EASILY WOKEN UP. PATIENT IS ALERT AND ORIENTED X 4. ON ROOM AIR, WITH EQUAL AND UNLABORED BREATHING, STABLE ON ROOM AIR, NO S/S OF RESPIRATORY DISTRESS. ABLE TO MAKE NEEDS KNOWN. WITH IV ACCESS: LFA #20, RUNNING NACL D10 @150 ML/HR, INFUSING WELL. ON TELE MONITORING SHOWING SINUS RHYTHM 70 BPM. SAFETY MEASURES MAINTAINED: BED LOCKED AND IN LOWEST POSITION, SIDE RAILS UPx2, CALL LIGHT WITHIN REACH, HOB ELEVATED. WILL CONTINUE WITH PLAN OF CARE.
[2022-09-03] MEDS: PANTOPRAZOLE 40 MG TABLET.DR PO SCH (07:55)
[2022-09-03 08:00] VITALS: BP 127/73
[2022-09-03] MEDS: VALACYCLOVIR HCL 500 MG TABLET PO SCH ×2 (08:21→21:13)
[2022-09-03] MEDS: VENLAFAXINE XR 37.5 MG CAP.SR.24H PO SCH (08:36)
--- NOTE | 2022-09-03 11:19 | NUR ---
MS RN NOTE SEEN BY DR. SANTIAGO
[2022-09-03 12:00] VITALS: BP 126/73
--- NOTE | 2022-09-03 12:10 | NUR ---
MS RN NOTE SEEN BY DR. TREJO.
[2022-09-03 16:00] VITALS: BP 137/47
[2022-09-03] MEDS: ACETAMINOPHEN 325 MG TABLET PO PRN ×2 (16:55→23:46)
--- NOTE | 2022-09-03 19:00 | NUR ---
COMPUTER PERIPHERAL EQUIPMENT OPERATOR CLOSING NOTES PATIENT ASLEEP IN BED BUT EASILY WOKEN UP. PATIENT IS ALERT AND ORIENTED X 4. ON ROOM AIR, WITH EQUAL AND UNLABORED BREATHING, STABLE ON ROOM AIR, NO S/S OF RESPIRATORY DISTRESS. ABLE TO MAKE NEEDS KNOWN. WITH IV ACCESS: RFA #20, RUNNING NACL D10 @150 ML/HR, INFUSING WELL. SAFETY MEASURES MAINTAINED: BED LOCKED AND IN LOWEST POSITION, SIDE RAILS UPx2, CALL LIGHT WITHIN REACH, HOB ELEVATED. WILL ENDORSE TO NEXT SHIFT FOR CONTINUITY OF CARE.
--- NOTE | 2022-09-03 19:51 | NUR ---
RN TRANSPORT OPENING NOTES RECIEVED PATIENT IN BED AAOX4,ABLE TO MAKE NEEDS KNOWN,BEULAH WELL ON ROOM AIR,NO SIGN SOB/DISTRESS NOTED,NO COMPLAIN OF PAIN/DISCOMFORT AT THIS TIME, IV ACCESS: LFA #20,PATENT AND INTACT,SAFETY MEASURES MAINTAINED: BED LOCKED AND IN LOWEST POSITION, SIDE RAILS UPx2, CALL LIGHT WITHIN REACH,WILL CONTINUE TO MONITOR.
[2022-09-03 20:00] VITALS: BP 127/78
--- NOTE | 2022-09-03 21:13 | NUR ---
RN NOTES; PT REFUSED INSULIN SAID DON'T NEED IT.
[2022-09-04] MEDS: BLOOD SUGAR DIAGNOSTIC 1 EACH STRIP IN SCH ×6 (01:00→20:06)
--- NOTE | 2022-09-04 01:01 | NUR ---
RN NOTES; PT REFUSED BS CHECK,
[2022-09-04] MEDS: CLINDAMYCIN HCL 150 MG CAPSULE PO SCH ×4 (05:03→23:38)
[2022-09-04] MEDS: Sodium Chloride 77 MEQ in IV 10% DEXTROSE 1,000 ML IV SCH ×3 (05:51→20:03)
[2022-09-04 06:20] LABS: BASOPHILS % (AUTO) 0.2 % (0.0-2.0); HEMATOCRIT 43 % (39-51); HEMOGLOBIN 14.6 g/dL (13.5-17.5); LYMPHOCYTES # (AUTO) 0.5 K/uL (0.8-4.8); LYMPHOCYTES % (AUTO) 6.3 % (20.0-44.0); MEAN CORPUSCULAR HGB CONC 34 g/dl (31.0-36.0); MEAN CORPUSCULAR VOLUME 88 fL (80-96); MONOCYTES # (AUTO) 0.8 K/uL (0.1-1.30); MONOCYTES % (AUTO) 10.2 % (2.0-12.0); NEUTROPHILS # (AUTO) 6.5 K/uL (1.8-8.9); NEUTROPHILS % (AUTO) 83.3 % (43.0-81.0); PLATELET COUNT (AUTO) 284 K/uL (150-450); RED BLOOD CELL COUNT(AUTO) 4.89 MIL/uL (4.5-6.0); WHITE BLOOD COUNT (AUTO) 7.8 K/uL (4.3-11.0)
--- NOTE | 2022-09-04 06:28 | NUR ---
RN CLOSING NOTES; PATIENT IN BED AAOX4,ABLE TO MAKE NEEDS KNOWN,BEULAH WELL ON ROOM AIR,NO SIGN SOB/DISTRESS NOTED,NO COMPLAIN OF PAIN/DISCOMFORT DURING SHIFT,DUE MEDS GIVEN ORDER,ALL NEEDS ATTENDED, IV ACCESS LFA #20,PATENT AND INTACT,SAFETY MEASURES MAINTAINED: BED LOCKED AND IN LOWEST POSITION, SIDE RAILS UPx2, CALL LIGHT WITHIN REACH,WILL ENDORSED TO NEXT SHIFT.
[2022-09-04 06:49] LABS: CALCIUM, SERUM 7.9 mg/dL (8.5-10.1); CREATININE 0.9 mg/dL (0.6-1.3); MAGNESIUM 1.7 mg/dL (1.8-2.4); PHOSPHORUS 2.8 mg/dL (2.5-4.9); POTASSIUM 3.5 mmol/L (3.5-5.1)
--- NOTE | 2022-09-04 07:20 | NUR ---
RN OPENING NOTES RECEIVED PATIENT IN BED AOX4, ABLE TO MAKE NEEDS KNOWN, BREATHING WITHOUT DIFFICULTY ON ON ROOM AIR, NO SOB/DISTRESS NOTED,DENIES PAIN OR DISCOMFORT AT THIS TIME, IV ACCESS ON RFA #20 SL. PATENT AND INTACT, FLUSHING WELL. SAFETY MEASURES IN PLACE: BED LOCKED AND IN LOWEST POSITION, SIDE RAILS UP x2, CALL LIGHT AND TRAY TABLE WITHIN REACH. WILL CONTINUE TO MONITOR.
[2022-09-04] MEDS: PANTOPRAZOLE 40 MG TABLET.DR PO SCH (07:57)
[2022-09-04 08:00] VITALS: BP 120/70
[2022-09-04] MEDS: VENLAFAXINE XR 37.5 MG CAP.SR.24H PO SCH (08:30)
[2022-09-04] MEDS: VALACYCLOVIR HCL 500 MG TABLET PO SCH ×2 (08:30→20:06)
[2022-09-04] MEDS: ACETAMINOPHEN 325 MG TABLET PO PRN ×2 (08:41→17:00)
[2022-09-04] MEDS ORDERED: MAGNESIUM OXIDE 400 MG TABLET PO ONE (09:00)
--- NOTE | 2022-09-04 09:13 | NUR ---
WOUND CARE: RECEIVED ANOTHER CONSULT FOR SUPRAPUBIC REGION. SOME IMPROVEMENT NOTED IN REDNESS. DEFER TO SURGICAL TEAM CURRENTLY ON CASE. IN AGREEMENT WITH PLAN OF CARE.
[2022-09-04 16:00] VITALS: BP 137/72
--- NOTE | 2022-09-04 19:25 | NUR ---
RN CLOSING NOTES PATIENT IN BED AOX4, ABLE TO MAKE NEEDS KNOWN ON ROOM AIR WITH NO SOB/DISTRESS NOTED,DENIES PAIN OR DISCOMFORT AT THIS TIME, IV ACCESS ON RFA #20 SL. PATENT AND INTACT, FLUSHING WELL. ALL NEEDS MET, ALL DUE MEDS GIVEN. SAFETY MEASURES IN PLACE: BED LOCKED AND IN LOWEST POSITION, SIDE RAILS UP x2, CALL LIGHT AND TRAY TABLE WITHIN REACH. ENDORSED TO HEAD OF HUMAN RESOURCES NURSE.
[2022-09-04 20:00] VITALS: BP 102/65
--- NOTE | 2022-09-04 20:42 | NUR ---
RN OPENING NOTES RECEIVED PATIENT LYING AWAKE IN BED AOX4, ABLE TO MAKE NEEDS KNOWN ON ROOM AIR WITH NO SOB/DISTRESS NOTED. DENIES PAIN OR DISCOMFORT AT THIS TIME, IV ACCESS ON RFA #20 SL, INFUSING NACL 10% DEXTROSE AT 150ML/H. PATENT AND INTACT. ALL NEEDS MET. DUE MEDS GIVEN. SAFETY MEASURES MAINTAINED. WILL CONTINUE TO MONITOR.
[2022-09-05] MEDS: BLOOD SUGAR DIAGNOSTIC 1 EACH STRIP IN SCH ×4 (02:42→12:23)
[2022-09-05] MEDS: Sodium Chloride 77 MEQ in IV 10% DEXTROSE 1,000 ML IV SCH ×3 (02:42→16:12)
[2022-09-05] MEDS: ACETAMINOPHEN 325 MG TABLET PO PRN (04:14)
[2022-09-05] MEDS: CLINDAMYCIN HCL 150 MG CAPSULE PO SCH ×2 (05:38→11:25)
[2022-09-05 06:18] LABS: BASOPHILS % (AUTO) 0.5 % (0.0-2.0); EOSINOPHILS % (AUTO) 0.1 % (0.0-6.0); HEMATOCRIT 43 % (39-51); HEMOGLOBIN 14.7 g/dL (13.5-17.5); LYMPHOCYTES % (AUTO) 17.5 % (20.0-44.0); MEAN CORPUSCULAR HGB CONC 35 g/dl (31.0-36.0); MEAN CORPUSCULAR VOLUME 87 fL (80-96); MONOCYTES # (AUTO) 1.1 K/uL (0.1-1.30); MONOCYTES % (AUTO) 18.9 % (2.0-12.0); NEUTROPHILS # (AUTO) 3.5 K/uL (1.8-8.9); PLATELET COUNT (AUTO) 293 K/uL (150-450); RED BLOOD CELL COUNT(AUTO) 4.88 MIL/uL (4.5-6.0); WHITE BLOOD COUNT (AUTO) 5.6 K/uL (4.3-11.0)
--- NOTE | 2022-09-05 06:32 | NUR ---
RN CLOSING NOTES PATIENT IN BED AOX4, ABLE TO MAKE NEEDS KNOWN ON ROOM AIR WITH NO SOB/DISTRESS NOTED, DENIES PAIN OR DISCOMFORT AT THIS TIME, IV ACCESS ON RFA #20 SL. PATENT AND INTACT, FLUSHING WELL. COMPLAINS OF HEADACHE, RATE PAIN 3/10. GIVEN TYLENOL TAB PRN ORDERED. ALL NEEDS MET, ALL DUE MEDS GIVEN. SAFETY MEASURES IN PLACE: BED LOCKED AND IN LOWEST POSITION, SIDE RAILS UP x2, CALL LIGHT AND TRAY TABLE WITHIN REACH. WILL ENDORSE TO NEXT SHIFT RN FOR LIBERTAD.
[2022-09-05 06:39] LABS: CALCIUM, SERUM 8.1 mg/dL (8.5-10.1); CREATININE 0.8 mg/dL (0.6-1.3); MAGNESIUM 1.9 mg/dL (1.8-2.4); PHOSPHORUS 2.3 mg/dL (2.5-4.9); POTASSIUM 3.5 mmol/L (3.5-5.1)
--- NOTE | 2022-09-05 07:00 | NUR ---
MS RN OPENING NOTES: RECEIVED PT IN BED, ASLEEP EASILY AWAKEN BY VERBAL STIMULI. NO SOB OR CARDIAC DISTRESS NOTED, DENIES PAIN. ON ROOM AIR AND TOLERATING WELL. IV ACCESS ON RFA GAUGE 20,PATENT,INTACT AND SALINE LOCKED, KEPT RESTED AND COMFORTABLE. SAFETY MEASURES MAINTAINED: BED LOCKED AND IN LOWEST POSITION, SIDE RAILS UP X 2, CALL LIGHT AND BED SIDE TABLE, BED CONTROL IN EASY REACH. WILL MONITOR ACCORDINGLY.
[2022-09-05] MEDS: PANTOPRAZOLE 40 MG TABLET.DR PO SCH (07:40)
[2022-09-05 08:00] VITALS: BP 104/51
[2022-09-05] MEDS: VALACYCLOVIR HCL 500 MG TABLET PO SCH (08:56)
[2022-09-05] MEDS: VENLAFAXINE XR 37.5 MG CAP.SR.24H PO SCH (08:56)
--- NOTE | 2022-09-05 10:50 | NUR ---
TTC: LISSETT received call from [facility] Lacie CONRAD tel: [phone] ext#[phone] asking if pt. is diabetic. LISSETT called [facility] to confirm, per RN, it is not confirmed and she will ask MD if they can do test to confirm and also confirm if needs to be on insulin. LISSETT informed Lacie of above stated information. LISSETT will be available as needed.
--- NOTE | 2022-09-05 10:54 | NUR ---
RN NOTES: PT'S IV IS OUT, PT REFUSING FOR IV REINSERTION, DR DEJESUS MADE AWARE STATED "IT'S OKAY", INFORMED MD PT IS EATING AND DRINKING WELL APPROXIMATELY 75-100%).
--- NOTE | 2022-09-05 11:08 | NUR ---
RN NOTES: INFORMED DR DEJESUS IF WE CAN CHECK HGB A1C, MD ROMERO. ORDERS NOTED AND CARRIED OUT.
[2022-09-05] MEDS ORDERED: K PHOS NEUTRAL 250 MG TABLET PO ONE (13:00)
--- NOTE | 2022-09-05 14:36 | NUR ---
RN NOTES: PT HAS VANCO IV, NO IV ACCESS, ENCOURAGED PT FOR IV RE-INSERTION PATIENT DECLINED/REFUSED. EXPLAINED THE RISK AND BENEFITS, PT VERBALIZED UNDERSTANDING AND STILL REFUSED IV INSERTION. DR DEJESUS MADE AWARE.
[2022-09-05] MEDS ORDERED: VANCOMYCIN 1.25 GM in IV D5W 250 ML IV ONE (15:30)
[2022-09-05 15:55] VITALS: BP 123/65
--- NOTE | 2022-09-05 16:29 | NUR ---
RN NOTES: PT REFUSED IV INSERTION,UNABLE TO GIVE/INFUSE FLUIDS . MADE AWARE.
[2022-09-05 17:25] LABS: BAND % (MANUAL) 6 % (0.0-5.0); NEUTROPHILS % (MANUAL) 57 (42-76)
[2022-09-05 17:26] LABS: LYMPHOCYTES % (MANUAL) 22 % (16-48); MONOCYTES % (MANUAL) 15 % (0-11.0)
[2022-09-05] MEDS ORDERED: LEVO750T46 PO (17:26)
[2022-09-05] MEDS ORDERED: VALA500T PO (17:30)
[2022-09-05] MEDS ORDERED: BLOOD SUGAR DIAGNOSTIC 1 EACH STRIP IN SCH (17:30)
--- NOTE | 2022-09-05 17:53 | NUR ---
AMA DISCHARGE NOTES: PATIENT WANTED TO DC,INFORMED PT DOCTOR NOT CLEARING HIM YET, PT INSISTED THAT HE WANT TO GO HOME AGAINTS MEDICAL ADVICE. EXPLAINED THE RISK AND BENEFITS AND PT VERBALIZED UNDERSTANDING. PT ALERT AND ORIENTED X 4 NO SOB OR CARDIAC DISTRESS DENIES PAIN AT THIS TIME. INFORMED ASSOCIATE CONSULTING ENGINEER OLEG AND PRESCRIBED ANTIBIOTICS. PT SIGNED AMA FORM, AND GAVE THE DISCHARGE INSTRUCTION TO TAKE ORAL ANTIBIOTICS AND CONTINUE TO FOLLOW UP WITH HIS PCP. PT VERBALIZED UNDERSTANDING. BELONGINGS TAKEN WITH THE PT (SHOES), PT IN A HURRY AND DID NOT SIGN FOR BELONGINGS LIST. PT LEFT THE UNIT AMBULATORY AND STABLE, ACCOMPANIED BY HIS FRIEND.
[2022-09-05] MEDS ORDERED: VANCOMYCIN 1 GM in IV D5W 250 ML IV SCH (22:00)
--- NOTE | 2022-09-07 16:47 | NUR ---
TTC Water Meter Reader, Lacie [phone] to follow up and SW notified her pt. is not longer in the hospital.
== END 2022-09-05 18:17 | disposition left against medical advice (07) | DRG 424 ==
LOC: ER 03:57 → TRANSITION 22:39 → TELE 08-30 20:51 → MED 09-03 13:24
PROVIDERS: ADMIT Student in an Organized Health Care Education/Training Program; ATTEND Nurse Practitioner Acute Care
DX: E16.2 Hypoglycemia, unspecified (principal); G92.8 Other toxic encephalopathy; R78.81 Bacteremia; L02.214 Cutaneous abscess of groin; F25.9 Schizoaffective disorder, unspecified; E86.0 Dehydration; L03.114 Cellulitis of left upper limb; L03.113 Cellulitis of right upper limb; L02.416 Cutaneous abscess of left lower limb; L02.415 Cutaneous abscess of right lower limb; F41.9 Anxiety disorder, unspecified; L02.821 Furuncle of head [any part, except face]; F31.9 Bipolar disorder, unspecified; Z53.20 Procedure and treatment not carried out because of patient's decision for unspecified reasons; L40.1 Generalized pustular psoriasis; Z59.00 Homelessness unspecified; Z86.19 Personal history of other infectious and parasitic diseases; F17.200 Nicotine dependence, unspecified, uncomplicated; Z88.0 Allergy status to penicillin; Z91.51 Personal history of suicidal behavior; F15.90 Other stimulant use, unspecified, uncomplicated
CPT/HCPCS: 36415; 80048-TC; 80076-TC; 81001; 82962-TC; 83735-TC; 84100-TC; 85025-TC; 86592; 86593; 86803; 87040-TC; 87081-TC; 87806; C9803; G0378; G0480; J1200; J1630; J2060; J2405; J3370; J3490; J7050; J7060